=== PATIENT | female | born 1970 | race Two or more races ===

== ENCOUNTER 2020-08-05 19:31 | Inpatient (IN) | payer OTHER ==
[~2020-08-05] VITALS: Ht 160 cm; Wt 145.1 kg
[2020-08-05] MEDS ORDERED: AVAPRO150 MG (19:55)
[2020-08-05] MEDS ORDERED: LIPITOR80 MG (19:56)
[2020-08-05] MEDS ORDERED: ZEGERID 40 MG1 EACH (19:56)
[2020-08-05] MEDS ORDERED: CHLORTHALIDONE25 MG (19:56)
[2020-08-05] MEDS ORDERED: ADULT LOW DOSE81 M1 (19:56)
[2020-08-05] MEDS ORDERED: HORIZANT300 MG (19:57)
[2020-08-05] MEDS ORDERED: DERMACINRX5000 UNIT (19:57)
[2020-08-05] MEDS ORDERED: PLAVIX75 MG (19:57)
[2020-08-05] MEDS ORDERED: MELATONIN5 M5 (19:58)
[2020-08-13] MEDS ORDERED: AMLODIPINE BESY10 MG PO (07:23)
[2020-08-13] MEDS ORDERED: AVAPRO150 MG PO (07:24)
== END 2020-08-16 13:57 | disposition home or self-care (01) | DRG 190 ==
LOC: ER 19:31 → ICU-2 08-06 07:29 → MEDI 08-10 10:23
PROVIDERS: ADMIT Internal Medicine; ATTEND Internal Medicine
PROC: 8E0ZXY6 Isolation (ICD-10-PCS; principal; 2020-08-06)
PROC: 5A09457 Assistance with Respiratory Ventilation, 24-96 Consecutive Hours, Continuous Positive Airway Pressure (ICD-10-PCS; 2020-08-06)
PROC: 02HV33Z Insertion of Infusion Device into Superior Vena Cava, Percutaneous Approach (ICD-10-PCS; 2020-08-07)
PROC: B24BYZZ Ultrasonography of Heart with Aorta using Other Contrast (ICD-10-PCS; 2020-08-13)
DX: J44.1 Chronic obstructive pulmonary disease with (acute) exacerbation (principal); J96.02 Acute respiratory failure with hypercapnia; I50.31 Acute diastolic (congestive) heart failure; E87.2 Acidosis; Z68.43 Body mass index [BMI] 50.0-59.9, adult; E66.01 Morbid (severe) obesity due to excess calories; I11.0 Hypertensive heart disease with heart failure; R53.81 Other malaise; Z53.29 Procedure and treatment not carried out because of patient's decision for other reasons; Z20.822 Contact with and (suspected) exposure to COVID-19

== ENCOUNTER 2020-09-06 11:46 | Emergency (ER) | payer OTHER ==
[~2020-09-06] VITALS: Ht 157.5 cm; Wt 136.1 kg
[~2020-09-06 11:46] MED LIST: ADULT LOW DOSE81 M1; AMLODIPINE BESY10 MG PO; AVAPRO150 MG; AVAPRO150 MG PO; CHLORTHALIDONE25 MG; DERMACINRX5000 UNIT; HORIZANT300 MG; LIPITOR80 MG; MELATONIN5 M5; PLAVIX75 MG; ZEGERID 40 MG1 EACH
[2020-09-06] MEDS ORDERED: BUMETANIDE1 MG PO (17:59)
== END 2020-09-06 18:14 | disposition home or self-care (01) ==
LOC: ER 11:46
DX: R60.0 Localized edema (principal); M79.661 Pain in right lower leg; M79.662 Pain in left lower leg; I10 Essential (primary) hypertension

== ENCOUNTER 2020-11-04 10:26 | Outpatient (CLI) | payer OTHER ==
[~2020-11-04 10:26] MED LIST changes: +BUMETANIDE1 MG PO
== END 2020-11-04 10:27 | disposition home or self-care (01) ==
LOC: NUCLEAR 10:26
PROVIDERS: ATTEND Internal Medicine Cardiovascular Disease
DX: I42.0 Dilated cardiomyopathy (principal)

== ENCOUNTER → 2020-12-05 | Outpatient (CLI) | payer OTHER | END | disposition home or self-care (01) | LOC: MRI 13:40 | PROVIDERS: ATTEND Psychiatry & Neurology Clinical Neurophysiology | DX: I67.1 Cerebral aneurysm, nonruptured (principal); I63.30 Cerebral infarction due to thrombosis of unspecified cerebral artery | CPT/HCPCS: 70544; 70551 ==

== ENCOUNTER 2021-09-05 09:07 | Emergency (ER) | payer OTHER ==
[~2021-09-05] VITALS: Ht 160 cm; Wt 148.3 kg
[2021-09-05] MEDS ORDERED: LASIX40 MG PO (09:41)
[2021-09-05] MEDS ORDERED: NORVASC5 MG PO (09:41)
[2021-09-05] MEDS ORDERED: GLUMETZA500 MG PO (09:41)
[2021-09-05] MEDS ORDERED: LIPITOR20 MG PO (09:42)
== END 2021-09-05 13:00 ==
LOC: ER 09:07
DX: U07.1 COVID-19 (principal); B34.9 Viral infection, unspecified; I10 Essential (primary) hypertension; E11.9 Type 2 diabetes mellitus without complications; Z79.84 Long term (current) use of oral hypoglycemic drugs

== ENCOUNTER 2021-09-10 08:20 | Outpatient (CLI) | payer OTHER ==
[~2021-09-10 08:20] MED LIST changes: +GLUMETZA500 MG PO; +LASIX40 MG PO; +LIPITOR20 MG PO; +NORVASC5 MG PO
== END 2021-09-10 09:20 | disposition home or self-care (01) ==
LOC: ASH CLINIC 08:20
PROVIDERS: ATTEND Emergency Medicine
DX: U07.1 COVID-19 (principal)

== ENCOUNTER 2022-04-12 05:03 | Day surgery (SDC) | payer OTHER | END 2022-04-12 10:35 | disposition home or self-care (01) | LOC: AMB-ENDOS 05:03 | PROVIDERS: ATTEND Surgery | DX: D12.3 Benign neoplasm of transverse colon (principal); K64.8 Other hemorrhoids; D50.9 Iron deficiency anemia, unspecified; K92.1 Melena; K64.2 Third degree hemorrhoids; Z20.822 Contact with and (suspected) exposure to COVID-19 ==

== ENCOUNTER 2022-10-07 10:33 | Day surgery (SDC) | payer OTHER ==
[~2022-10-07 10:33] MED LIST changes: +ACID REDUCER20 M1 PO; +ACTOS15 MG PO; +D3 + K2 DOTS 11 EACH PO; +OZEMPIC0.25 MG/0.
== END 2022-10-07 21:45 | disposition home or self-care (01) ==
LOC: CIR.AMB 10:33
PROVIDERS: ATTEND Obstetrics & Gynecology
DX: T83.32XA Displacement of intrauterine contraceptive device, initial encounter (principal); T83.39XA Other mechanical complication of intrauterine contraceptive device, initial encounter; Z20.822 Contact with and (suspected) exposure to COVID-19